=== PATIENT | female | born 1985 | race Caucasian/White ===

== ENCOUNTER 2018-10-28 16:26 | Emergency (ER) | payer MEDICARE, MEDICAID ==
[~2018-10-28] VITALS: Wt 54.4 kg
[~2018-10-28 16:26] MED LIST: ANAPROX DS550 MG PO; AUGMENTIN 875 M1 TAB PO
[2018-10-28] MEDS ORDERED: [UNRECOGNIZED DRUG - OTHER] PO (16:55)
[2018-10-28] MEDS ORDERED: [UNRECOGNIZED DRUG - OTHER] OT (16:56)
== END 2018-10-28 17:00 | disposition home or self-care (01) ==
LOC: ED 16:26
DX: H92.01 Otalgia, right ear (principal); H93.11 Tinnitus, right ear; R42 Dizziness and giddiness; Z91.018 Allergy to other foods

== ENCOUNTER 2018-12-20 02:35 | Emergency (ER) | payer MEDICARE, MEDICAID ==
[~2018-12-20] VITALS: Ht 154.9 cm; Wt 56.2 kg
--- NOTE | ~2018-12-20 | EKG ---
[place], [place] ELECTROCARDIOGRAM REPORT NAME: DARION CAICEDO UNIT #: [id number] ROOM: DOCTOR: EPIPHANY DRAFT REPORT BIRTHDATE: [birth year] [facility] Test Date: 2018-12-20 Test Time: 02:56:56 Pat Name: DARION CAICEDO Department: Room: Gender: F [employer] Operator: ELDA : 1985 Requested By: NEMESIO POP Order Number: [id number] Reading MD: Nannette Garcia MD Measurements Intervals [place] Rate: 93 P: 70 MI: 161 QRS: 76 QRSD: 80 T: 60 QT: 362 QTc: 451 Interpretive Statements Sinus rhythm Electronically Signed On 12-20-2018 12:11:59 PDT by Nannette Garcia MD CM:EKGRPT:ELECTROCARDIOGRAM REPORT [id number] 1211 NEMESIO SHER DRAFT REPORT NEMESIO POP DO
[~2018-12-20 02:35] MED LIST changes: +[UNRECOGNIZED DRUG - OTHER] OT; +[UNRECOGNIZED DRUG - OTHER] PO
[2018-12-20 02:56] LABS: BASO % 0.2 % (0.0-1.0); EOS # 0.1 10*3/uL (0.0-0.4); EOS % 0.9 % (1.0-4.0); HEMATOCRIT 39.7 % (37.0-47.0); HEMOGLOBIN 13.4 g/dl (12.0-16.0); LYMPH # 2.7 10*3/uL (1.3-4.4); LYMPH % 21.3 % (27.0-41.0); MEAN CELL VOLUME 92.8 fl (81.0-99.0); MEAN CORPUSCULAR HGB 31.3 pg (27.0-31.0); MEAN CORPUSCULAR HGB CONC 33.8 g/dl (33.0-37.0); MONO # 0.8 10*3/uL (0.1-1.0); MONO % 6.4 % (3.0-9.0); NEUT # 9.1 10*3/uL (2.3-7.9); NEUT % 70.8 % (47.0-73.0); PLATELET COUNT AUTOMATED 303 10*3/uL (130-400); RED BLOOD COUNT 4.28 10*6/uL (4.10-5.10); RED CELL DISTRI WIDTH 12.6 % (0-14.5); WHITE BLOOD COUNT 12.9 10*3/uL (4.8-10.8)
[2018-12-20 03:07] LABS: ACT PARTIAL THROMBO TIME 24.8 SECONDS (20.0-32.1); INTERNATIONAL NORM RATIO 0.9 (2.0-3.5)
[2018-12-20 03:13] LABS: ACETAMINOPHEN (TYLENOL) < 5.0 ug/ml (10-30); ALBUMIN 3.5 gm/dl (3.1-4.5); ALKALINE PHOSPHATASE 55 U/L (45-117); BUN 17 mg/dl (7-24); CHLORIDE 112 mmol/L (98-107); CREATININE 0.96 mg/dL (0.55-1.02); ETHYL ALCOHOL < 3.0 mg/dl (<3); LIPASE 102 U/L (73-393); POTASSIUM 3.6 mmol/L (3.5-5.1); SGOT/AST 16 IU/L (3-35); SGPT/ALT 17 U/L (12-78); SODIUM 143 mmol/L (136-145); TOTAL PROTEIN 6.8 gm/dL (6.4-8.2); TROPONIN I < 0.015 ng/ml (<0.045)
[2018-12-20 03:31] LABS: BILIRUBIN NEGATIVE (NEGATIVE); BLOOD NEGATIVE (NEGATIVE); CLARITY SL CLOUDY (CLEAR); COLOR YELLOW (YELLOW); GLUCOSE NEGATIVE (NEGATIVE); KETONE NEGATIVE (NEGATIVE); LEUKO ESTERASE TRACE (NEGATIVE); NITRITE NEGATIVE (NEGATIVE); UROBILINOGEN 0.2 E.U./dl (0.2-1.0)
[2018-12-20 03:40] LABS: URINE AMPHETAMINES > 1000 (1000ng/ml); URINE BARBITURATES < 200 (200ng/ml); URINE BENZODIAZEPINES < 200 (200ng/ml); URINE CANNABINOIDS (THC) < 50 (50ng/ml); URINE COCAINE < 300 (300ng/ml); URINE METHADONE < 300 (300ng/ml); URINE OPIATES < 300 (300ng/ml); URINE PHENCYCLIDINE < 25 (25ng/ml)
[2018-12-20 03:42] LABS: EPITHELIAL CELLS 45-50
[2018-12-20 03:43] LABS: RBC 0-2 rbc/hpf (0-2)
== END 2018-12-20 05:01 | disposition home or self-care (01) ==
LOC: ED 02:35
PROVIDERS: Student in an Organized Health Care Education/Training Program
DX: R55 Syncope and collapse (principal); F17.200 Nicotine dependence, unspecified, uncomplicated

== ENCOUNTER 2020-03-12 07:14 | Emergency (ER) | payer MEDICARE, MEDICAID ==
[~2020-03-12] VITALS: Wt 61.2 kg
== END 2020-03-12 08:13 | disposition left against medical advice (07) ==
LOC: ED 07:14
DX: F41.9 Anxiety disorder, unspecified (principal); F32.9 Major depressive disorder, single episode, unspecified; Z79.899 Other long term (current) drug therapy